=== PATIENT | male | born 1970 | race Caucasian/White ===

== ENCOUNTER 2017-11-13 16:09 | Outpatient (CLI) | payer OTHER ==
--- NOTE | 2017-11-13 19:10 | RAD ---
RIGHT KNEE TWO VIEWS: 11/13/17 Changes from a prior ACL reconstruction are noted. There is a normal postoperative appearance. No acu te bony changes are noted. There is probably a very small effusion. Joint space appears normal. IMPRESSION: Normal postoperative appearance. POS: HOME
== END 2017-11-13 16:10 | disposition home or self-care (01) ==
LOC: BURRAD 16:09
PROVIDERS: ATTEND Orthopaedic Surgery
DX: Z47.89 Encounter for other orthopedic aftercare (principal); Z98.890 Other specified postprocedural states

== ENCOUNTER 2017-12-13 14:26 | Outpatient (CLI) | payer OTHER ==
--- NOTE | 2017-12-13 17:34 | RAD ---
RIGHT ANKLE THREE VIEWS: 12/13/17 No fracture, new or old, was appreciated. The articular surfaces seem smooth. The ankle mortise was u nremarkable. IMPRESSION: No acute finding. POS: HOME
== END 2017-12-13 14:27 | disposition home or self-care (01) ==
LOC: BURRAD 14:26
PROVIDERS: ATTEND Orthopaedic Surgery
DX: M25.571 Pain in right ankle and joints of right foot (principal)

== ENCOUNTER 2019-01-30 13:08 | Outpatient (CLI) | payer OTHER ==
--- NOTE | 2019-01-31 08:24 | CT ---
CT ABDOMEN AND PELVIS WITHOUT CONTRAST: 01/30/[address] of the abdomen and pelvis was done for evaluation of left lower quadrant pain. There is a h istory of renal calculi. The lung bases are clear. Diffuse fatty infiltration of the liver is present but is not enlarged. The spleen, pancreas, adrenal glands, and aorta were unremarkable within the limitations of a noncontras t study. No gallstones were seen. Regarding the kidneys, there are some nonobstructing calculi in the left kidney. I do not see any hyd ronephrosis or ureteral calculi. The bowel shows no distention. There is no bowel wall thickening. No inflammatory changes are seen ar ound bowel. No free air or free fluid was present. CT of the pelvis shows no pelvic masses, fluid collections, or free fluid. No calculi are seen in the urinary bladder. IMPRESSION: A few small nonobstructing calculi in the left kidney, but no ureteral calculus or hydronephrosis was detected. POS: HOME
== END 2019-01-30 13:09 | disposition home or self-care (01) ==
LOC: BURCT 13:08
PROVIDERS: ATTEND Nurse Practitioner
DX: R10.9 Unspecified abdominal pain (principal); N20.0 Calculus of kidney
CPT/HCPCS: 74176